=== PATIENT | female | born 1990 | race Caucasian/White ===

== ENCOUNTER 2018-10-27 06:58 | Inpatient (IN) | payer BC ==
[~2018-10-27] VITALS: Ht 170.2 cm; Wt 78.6 kg
[2018-10-27] VITALS (29 sets, daily range): BP systolic 92–122; BP diastolic 54–83; PULSE 68–93; TEMP 98–98.5
[~2018-10-27 06:58] MED LIST: ASPIRIN 81M81 MG/TA2 PO; HEPARIN SOD5000 U/ML IJ; IBU800 M1 PO; PERCOCET 325 MG1 TA2 PO; PRENATAL1 TA7 PO; PRENATAL1 TAB PO
--- NOTE | 2018-10-27 07:05 | NUR ---
0705- Pt arrives on unit ambulatory for scheduled induction with , Amrit. Pt into bathroom, changes into gown. 0710- Pt into bed, EFM and TOCO on and tracing. Assessment completed. IV start without complications. Consents explained and signed.
[2018-10-27] MEDS ORDERED: HEPARIN SOD5000 U/ML IJ (07:17)
[2018-10-27 08:03] LABS: HEMOGLOBIN 11.3 g/dl (12.5-16.0); MEAN CELL VOLUME 97 fl (80.0-100.0); MEAN CORPUSCULAR HEMOGLOBIN 33 pg (27.0-31.0); MEAN CORPUSCULAR HGB CONC 34 g/dl (33.0-37.0); MEAN PLATELET VOLUME 10.3 fl (7.4-10.4); PLATELET COUNT 124 K/mm3 (130-400); RED BLOOD COUNT 3.44 M/mm3 (4.10-5.30); REDCELL DISTRIBUTION WIDTH-CV 13.7 % (11.5-14.5)
[2018-10-27 08:10] LABS: HEMATOCRIT 33.5 % (37.0-47.0)
[2018-10-27 08:24] LABS: BAND 11 % (0-10); EOSINOPHIL 1 % (0-4); LYMPHOCYTE 18 % (20.0-51.0); NEUTROPHILS 62 % (42.0-75.2); PLATELET ESTIMATE NORMAL (NORMAL)
--- NOTE | 2018-10-27 11:45 | NUR ---
1140- Pt complaining of continued vaginal pressure since epidural placment. SVE by this RN, Complete/+1. Pitocin off. Epidural button pressed. Pt denies urge to push at this time. Dr Gregorio unavailable, in OR doing procedure, updated on Pt status, no new orders at this time.
--- NOTE | 2018-10-27 13:40 | NUR ---
1326- Dr Gregorio at bedside. Pt and room prepped for delivery. Steve, Nursery RN at bedside. 1332- Pitocin on at 2mu per Dr Gregorio VO. 1334- Pt pushes with UC. 1336- Straight cath by MD with Jose Marlow. Pt continues pushing with [facility]. 1340- of viable male infant. Infant to mother's abd where dried and stimulated, tended to by nursery RN. Pitocin off. Cord clamped and cut. Cord blood obtained. 1348- Spontaneous delivery of placenta, Pitocin on at 333ml/hr. Laceration repaired by . Pericare completed. Ice pack on. Pt tolerated well.
--- NOTE | 2018-10-27 16:30 | NUR ---
1630- Pt unable to lift and hold left leg off bed for 5 seconds. Straight cath by this RN without difficulty. Pericare completed. Ice pack and underwear on. Gown changed. Pt transfered to wheelchair with assist x1. Taken to PP room. Tranfered same way into bed. Oriented to room. Call light within reach. in nursery with , updated on Pt location.
[2018-10-28 02:45] VITALS: BP 95/52; PULSE 77; TEMP 97.8
--- NOTE | 2018-10-28 06:42 | NUR ---
Report received from off going RN, Katty Esquivel Care assumed by this RN.
[2018-10-28 06:54] VITALS: BP 119/64; PULSE 86; TEMP 98.3
[2018-10-28 11:26] VITALS: BP 117/67; PULSE 80; TEMP 97.6
--- NOTE | 2018-10-28 12:50 | NUR ---
Initial visit; Family resting, Tap Puller left card of congratulations for the of their son and information regarding the availability of [facility] at [place].
[2018-10-28 16:41] VITALS: BP 109/64; PULSE 76; TEMP 98.1
[2018-10-28 19:13] VITALS: BP 108/76; PULSE 80; TEMP 97.6
[2018-10-29 07:36] VITALS: BP 108/65; PULSE 82; TEMP 97.7
== END 2018-10-29 11:40 | disposition home or self-care (01) | DRG 807 ==
LOC: OB 06:58 → INPTSU 06:58 → LDR 07:01 → OB 14:02
PROVIDERS: ADMIT Student in an Organized Health Care Education/Training Program
PROC: 3E033VJ Introduction of Other Hormone into Peripheral Vein, Percutaneous Approach (ICD-10-PCS; principal; 2018-10-27)
PROC: 10E0XZZ Delivery of Products of Conception, External Approach (ICD-10-PCS; 2018-10-27)
PROC: 10907ZC Drainage of Amniotic Fluid, Therapeutic from Products of Conception, Via Natural or Artificial Opening (ICD-10-PCS; 2018-10-27)
PROC: 0UQMXZZ Repair Vulva, External Approach (ICD-10-PCS; 2018-10-27)
DX: O76 Abnormality in fetal heart rate and rhythm complicating labor and delivery (principal); Z37.0 Single live birth; O99.824 Streptococcus B carrier state complicating childbirth; O71.82 Other specified trauma to perineum and vulva; Z3A.39 39 weeks gestation of pregnancy; Z23 Encounter for immunization
CPT/HCPCS: J2540; J2590; J2795; J7120